=== PATIENT | male | born 1940 | race Caucasian/White ===

== ENCOUNTER 2018-03-03 08:58 | Inpatient (IN) | payer MEDICARE, OTHER ==
[~2018-03-03] VITALS: Ht 188 cm; Wt 90.7 kg
--- NOTE | 2018-03-03 09:38 | Emergency Room Report ---
History of Present Illness General Chief Complaint: Abnormal Labs Source: Patient, EMS Present Illness HPI Patient is sent in from nursing facility with reports of elevated white blood cell count Upon arrival the patient is confused sluggish Decreased responsiveness he does open his eyes to verbal command However is not able to provide appropriate history There is report from the nursing facility indicating white blood cell count over 15,000 There is not much further input History of present illness does remain very limited Unknown regarding change in medications Unknown regarding change in mentation Allergies: Coded Allergies: LORAZEPAM (Verified Allergy, Unknown, 03/03/18) Patient History Limited by: medical condition Past Medical History: see triage record Pertinent Family History: unable to obtain Reviewed Nursing Documentation: PMH: Agreed; PSxH: Agreed Nursing Documentation-PMH Past Medical History: No History, Except For Hx Asthma: Yes Hx Diabetes: Yes - Type 2 Hx Gastrointestinal Problems: Yes - GERD Hx Dialysis: Yes - CKD History Of Psychiatric Problem: Yes - Schizo, Anxiety, Depression, Dementia, Alzheimer's Review of Systems All Other Systems: limited - Other than the ones mentioned in the history of present illness all others are reviewed however they do stay limited due to the patient's mental status Physical Exam Vital Signs Date Time Temp Pulse Resp B/P (MAP) Pulse Ox O2 Delivery O2 Flow Rate FiO2 03/03/18 08:55 97.3 76 20 89/53 94 Nasal Cannula 2.0 Sp02 EP Interpretation: reviewed, normal General Appearance: no apparent distress Head: normocephalic, atraumatic Eyes: bilateral eye PERRL, bilateral eye EOMI ENT: dry mucus membranes Neck: supple, thyroid normal Respiratory: no respiratory distress, no retraction, no accessory muscle use, crackles - Both lower lobes Cardiovascular #1: regular rate, rhythm, no edema Gastrointestinal: non tender, soft Musculoskeletal: other - Patient does not follow all commands, however moves both upper extremities without focal deficit Neurologic: responsive - with underlying decreased mentation Skin: normal color, no rash Lymphatic: no adenopathy Medical Decision Making Diagnostic Impression: Primary Impression: Sepsis Additional Impression: UTI (urinary tract infection) ER Course Patient is a fairly complex patient with multiple differential to consideration including but not limited to cardiac cardiopulmonary, infectious, intracranial and vascular emergencies Patient's white blood cell count is minimally elevated Urine sample does show bacteria given some of the change in mentation sepsis is considered patient provided with broad-spectrum antibiotics Given consideration of possible fluid overload, the 30 mL/kg bolus has not been initiated Patient's x-ray also showing some concerns of possible infiltrate At this time doing better and admitted for further care Labs Test 03/03/18 09:20 03/03/18 10:00 White Blood Count 12.4 K/UL (4.8-10.8) Red Blood Count 4.16 M/UL (4.70-6.10) Hemoglobin 12.2 G/DL (14.2-18.0) Hematocrit 36.8 % (42.0-52.0) Mean Corpuscular Volume 89 FL (80-99) Mean Corpuscular Hemoglobin 29.4 PG (27.0-31.0) Mean Corpuscular Hemoglobin Concent 33.2 G/DL (32.0-36.0) Red Cell Distribution Width 12.6 % (11.6-14.8) Platelet Count 140 K/UL (150-450) Mean Platelet Volume 6.4 FL (6.5-10.1) Neutrophils (%) (Auto) 76.3 % (45.0-75.0) Lymphocytes (%) (Auto) 15.3 % (20.0-45.0) Monocytes (%) (Auto) 6.6 % (1.0-10.0) Eosinophils (%) (Auto) 1.2 % (0.0-3.0) Basophils (%) (Auto) 0.7 % (0.0-2.0) Sodium Level 140 MMOL/L (136-145) Potassium Level 4.0 MMOL/L (3.5-5.1) Chloride Level 105 MMOL/L (98-107) Carbon Dioxide Level 31 MMOL/L (21-32) Anion Gap 4 mmol/L (5-15) Blood Urea Nitrogen 22 mg/dL (7-18) Creatinine 0.9 MG/DL (0.55-1.30) Estimat Glomerular Filtration Rate mL/min (>60) Glucose Level 122 MG/DL (74-106) Lactic Acid Level 1.90 mmol/L (0.4-2.0) Calcium Level 9.1 MG/DL (8.5-10.1) Total Bilirubin 0.6 MG/DL (0.2-1.0) Aspartate Amino Transf (AST/SGOT) 32 U/L (15-37) Alanine Aminotransferase (ALT/SGPT) 14 U/L (12-78) Alkaline Phosphatase 71 U/L (46-116) Total Creatine Kinase 244 U/L (26-308) Creatine Kinase MB 2.1 NG/ML (0.0-3.6) Creatine Kinase MB Relative Index 0.8 Troponin I 0.000 ng/mL (0.000-0.056) Total Protein 7.0 G/DL (6.4-8.2) Albumin 2.7 G/DL (3.4-5.0) Globulin 4.3 g/dL Albumin/Globulin Ratio 0.6 (1.0-2.7) Urine Color Julisa Urine Appearance Clear Urine pH 6 (4.5-8.0) Urine Specific [place] 1.015 (1.005-1.035) Urine Protein 1+ (NEGATIVE) Urine Glucose (UA) Negative (NEGATIVE) Urine Ketones Negative (NEGATIVE) Urine Blood 2+ (NEGATIVE) Urine Nitrite Negative (NEGATIVE) Urine Bilirubin Negative (NEGATIVE) Urine Ictotest Negative (NEGATIVE) Urine Urobilinogen 1 MG/DL (0.0-1.0) Urine Leukocyte Esterase 3+ (NEGATIVE) Urine RBC 2-4 /HPF (0 - 0) Urine WBC 30-40 /HPF (0 - 0) Urine Squamous Epithelial Cells Occasional /LPF Urine Bacteria Few /HPF (NONE) Rhythm Strip Diag. Results EP Interpretation: yes Rate: 66 Rhythm: NSR, no PVC's, no ectopy Chest X-Ray Diagnostic Results Chest X-Ray Diagnostic Results : Chest X-Ray Ordered: Yes # of Views/Limited/Complete: 1 View Indication: Chest Pain EP Interpretation: Yes Interpretation: no effusion, no pneumothorax, other - Bilateral atelectasis Impression: Other - bilateral atelectasis Electronically Signed by: Danny Kirby DO Last Vital Signs Date Time Temp Pulse Resp B/P (MAP) Pulse Ox O2 Delivery O2 Flow Rate FiO2 03/03/18 08:55 97.3 76 20 89/53 94 Nasal Cannula 2.0 Status: improved Disposition: ADMITTED INPATIENT Condition: Serious Danny Kirby DO Mar 03, 2018 09:38
[2018-03-03 09:49] LABS: BASOPHILS % (AUTO) 0.7 % (0.0-2.0); EOSINOPHILS % (AUTO) 1.2 % (0.0-3.0); HEMATOCRIT 36.8 % (42.0-52.0); HEMOGLOBIN 12.2 G/DL (14.2-18.0); LYMPHOCYTES % (AUTO) 15.3 % (20.0-45.0); MEAN CORPUSCULAR VOLUME 89 FL (80-99); MONOCYTES % (AUTO) 6.6 % (1.0-10.0); NEUTROPHILS % (AUTO) 76.3 % (45.0-75.0); PLATELET COUNT 140 K/UL (150-450); RED BLOOD COUNT 4.16 M/UL (4.70-6.10); RED CELL DISTRIBUTION WIDTH 12.6 % (11.6-14.8); WHITE BLOOD COUNT 12.4 K/UL (4.8-10.8)
[2018-03-03 09:50] LABS: ANION GAP 4 mmol/L (5-15); BLOOD UREA NITROGEN 22 mg/dL (7-18); CALCIUM 9.1 MG/DL (8.5-10.1); CARBON DIOXIDE 31 MMOL/L (21-32); CHLORIDE 105 MMOL/L (98-107); CREATININE 0.9 MG/DL (0.55-1.30); SODIUM 140 MMOL/L (136-145)
[2018-03-03 10:05] LABS: ALANINE AMINOTRANSFERASE 14 U/L (12-78); ALBUMIN 2.7 G/DL (3.4-5.0); ALBUMIN/GLOBULIN RATIO 0.6 (1.0-2.7); ALKALINE PHOSPHATASE 71 U/L (46-116); ASPARTATE AMINO TRANSFERASE 32 U/L (15-37); BILIRUBIN,TOTAL 0.6 MG/DL (0.2-1.0); CKMB 2.1 NG/ML (0.0-3.6); CREATINE KINASE 244 U/L (26-308)
[2018-03-03] MEDS ORDERED: ARICEPT5 MG ORAL (10:20)
[2018-03-03] MEDS ORDERED: RISPERDAL0.25 MG ORAL (10:20)
[2018-03-03] MEDS ORDERED: BENZTROPINE ME0.5 MG PO (10:20)
[2018-03-03] MEDS ORDERED: ASPIR 8181 MG ORAL (10:20)
[2018-03-03] MEDS ORDERED: TRAZODONE HCL50 MG ORAL (10:20)
[2018-03-03] MEDS ORDERED: CYMBALTA30 MG ORAL (10:20)
[2018-03-03] MEDS ORDERED: NORCO 5-325 TA1 EACH ORAL (10:20)
[2018-03-03] MEDS ORDERED: MULTIPLE VITAM1 EAC5 PO (10:20)
[2018-03-03] MEDS ORDERED: OMEPRAZOLE40 M1 ORAL (10:20)
[2018-03-03] MEDS ORDERED: DOCUSATE SODIU100 MG ORAL (10:20)
[2018-03-03] MEDS ORDERED: DUONEB 0.5-3(2.53 ML HHN (10:20)
[2018-03-03] MEDS ORDERED: XANAX0.5 MG ORAL (10:20)
[2018-03-03] MEDS ORDERED: ATORVASTATIN CA40 MG ORAL (10:20)
[2018-03-03] MEDS ORDERED: VITAMIN D2000 UNI2 PO (10:20)
[2018-03-03] MEDS ORDERED: LORATADINE10 M1 PO (10:20)
[2018-03-03 10:24] LABS: APPEARANCE,URINE CLEAR; BILIRUBIN, URINE NEGATIVE (NEGATIVE); COLOR,URINE AMBER; GLUCOSE, URINE (UA) NEGATIVE (NEGATIVE); KETONES,URINE NEGATIVE (NEGATIVE); LEUKOCYTE ESTERASE ,URINE 3+ (NEGATIVE); NITRITE,URINE NEGATIVE (NEGATIVE); PH,URINE 6 (4.5-8.0); PROTEIN,URINE 1+ (NEGATIVE); UROBILINOGEN,URINE 1 MG/DL (0.0-1.0)
--- NOTE | 2018-03-03 10:33 | Diagnostic Imaging Report ---
EXAM: XR Chest, 1 View CLINICAL HISTORY: Shortness of breath TECHNIQUE: Frontal view of the chest. COMPARISON: No relevant prior studies available. FINDINGS: Lungs: Subsegmental atelectasis versus infiltrate in the medial lung bases. Mildly increased interstitial markings. Pleural space: Unremarkable. The costophrenic angles are sharp. No visible pneumothorax. Heart: Unremarkable. No cardiomegaly. Mediastinum: Unremarkable. Bones/joints: Remote healed lateral right rib fractures. Soft tissues: Multiple subcentimeter radiodense pellets overlie the right chest soft tissues. Tubes, lines and devices: EKG leads overlie the thorax. Multiple radiodense wires overlie the right thorax. Spinal stimulator leads overlying the mid thoracic spine. IMPRESSION: 1. Subsegmental atelectasis versus infiltrate in the medial lung bases. 2. Mildly increased interstitial markings. This is nonspecific and may be related to chronic senescent changes. Differential diagnosis may also include mild pulmonary vascular congestion or mild interstitial pneumonitis.
[2018-03-03 11:05] VITALS: BP 104/54
[2018-03-03 11:46] VITALS: BP 100/61
[2018-03-03 12:10] VITALS: BP 99/64
[2018-03-03] MEDS ORDERED: Morphine Sulfate 2mg/ml Inj IVP PRN (13:00)
[2018-03-03] MEDS ORDERED: Miralax 17gm pkt ORAL PRN (13:00)
[2018-03-03] MEDS ORDERED: Nitroglycerin Subl 0.4mg tab SL PRN (13:00)
[2018-03-03] MEDS ORDERED: Albuterol/Ipratropium 3ml neb HHN PRN (13:00)
--- NOTE | 2018-03-03 15:25 | Pulmonology Progress Note ---
Assessment/Plan Assessment/Plan HPI Patient is sent in from nursing facility with reports of elevated white blood cell count Upon arrival the patient is confused sluggish Decreased responsiveness he does open his eyes to verbal command Noted to have elevated WBC No other history available PMH: Asthma, Type 2 Diabetes, GERD, CKD, Schizophrenia, Anxiety Depression, Alzheimers Dementia Coded Allergies: LORAZEPAM (Verified Allergy, Unknown, 03/03/18) Review of Systems: limited - Other than the ones mentioned in the history of present illness all others are reviewed however they do stay limited due to the patient's mental status Physical Exam Vital Signs Date Time Temp Pulse Resp B/P (MAP) Pulse Ox O2 Delivery O2 Flow Rate FiO2 03/03/18 08:55 97.3 76 20 89/53 94 Nasal Cannula 2.0 General Appearance: no apparent distress Head: normocephalic, atraumatic Eyes: bilateral eye PERRL, bilateral eye EOMI ENT: dry mucus membranes Neck: supple, thyroid normal Respiratory: no respiratory distress, no retraction, no accessory muscle use, crackles - Both lower lobes Cardiovascular #1: regular rate, rhythm, no edema Gastrointestinal: non tender, soft Musculoskeletal: other - Patient does not follow all commands, however moves both upper extremities without focal deficit Neurologic: responsive - with underlying decreased mentation Skin: normal color, no rash Lymphatic: no adenopathy Labs Test 03/03/18 09:20 03/03/18 10:00 White Blood Count 12.4 K/UL (4.8-10.8) Red Blood Count 4.16 M/UL (4.70-6.10) Hemoglobin 12.2 G/DL (14.2-18.0) Hematocrit 36.8 % (42.0-52.0) Mean Corpuscular Volume 89 FL (80-99) Mean Corpuscular Hemoglobin 29.4 PG (27.0-31.0) Mean Corpuscular Hemoglobin Concent 33.2 G/DL (32.0-36.0) Red Cell Distribution Width 12.6 % (11.6-14.8) Platelet Count 140 K/UL (150-450) Mean Platelet Volume 6.4 FL (6.5-10.1) Neutrophils (%) (Auto) 76.3 % (45.0-75.0) Lymphocytes (%) (Auto) 15.3 % (20.0-45.0) Monocytes (%) (Auto) 6.6 % (1.0-10.0) Eosinophils (%) (Auto) 1.2 % (0.0-3.0) Basophils (%) (Auto) 0.7 % (0.0-2.0) Sodium Level 140 MMOL/L (136-145) Potassium Level 4.0 MMOL/L (3.5-5.1) Chloride Level 105 MMOL/L (98-107) Carbon Dioxide Level 31 MMOL/L (21-32) Anion Gap 4 mmol/L (5-15) Blood Urea Nitrogen 22 mg/dL (7-18) Creatinine 0.9 MG/DL (0.55-1.30) Estimat Glomerular Filtration Rate mL/min (>60) Glucose Level 122 MG/DL (74-106) Lactic Acid Level 1.90 mmol/L (0.4-2.0) Calcium Level 9.1 MG/DL (8.5-10.1) Total Bilirubin 0.6 MG/DL (0.2-1.0) Aspartate Amino Transf (AST/SGOT) 32 U/L (15-37) Alanine Aminotransferase (ALT/SGPT) 14 U/L (12-78) Alkaline Phosphatase 71 U/L (46-116) Total Creatine Kinase 244 U/L (26-308) Creatine Kinase MB 2.1 NG/ML (0.0-3.6) Creatine Kinase MB Relative Index 0.8 Troponin I 0.000 ng/mL (0.000-0.056) Total Protein 7.0 G/DL (6.4-8.2) Albumin 2.7 G/DL (3.4-5.0) Globulin 4.3 g/dL Albumin/Globulin Ratio 0.6 (1.0-2.7) Urine Color Julisa Urine Appearance Clear Urine pH 6 (4.5-8.0) Urine Specific [place] 1.015 (1.005-1.035) Urine Protein 1+ (NEGATIVE) Urine Glucose (UA) Negative (NEGATIVE) Urine Ketones Negative (NEGATIVE) Urine Blood 2+ (NEGATIVE) Urine Nitrite Negative (NEGATIVE) Urine Bilirubin Negative (NEGATIVE) Urine Ictotest Negative (NEGATIVE) Urine Urobilinogen 1 MG/DL (0.0-1.0) Urine Leukocyte Esterase 3+ (NEGATIVE) Urine RBC 2-4 /HPF (0 - 0) Urine WBC 30-40 /HPF (0 - 0) Urine Squamous Epithelial Cells Occasional /LPF Urine Bacteria Few /HPF (NONE) EP Interpretation: yes Rate: 66 Rhythm: NSR, no PVC's, no ectopy Chest X-Ray: Interpretation: no effusion, no pneumothorax, other - Bilateral atelectasis Impression: Other - bilateral atelectasis U/A Positive for UTI Impression: Possible Pneumonia Urinary Tract Infection Hypotension Asthma Type 2 Diabetes GERD CKD Schizophrenia, Anxiety/Depression Alzheimers Dementia Plan: Continue Broad spectrum Antibiotics Oxygen for O2 sats 90-96% IV fluids [employer]ING MACHINE OPERATOR Medications SQ Heparin Aspiration Precautions ISS Monitor Labs Subjective ROS Limited/Unobtainable: Yes Allergies: Coded Allergies: LORAZEPAM (Verified Allergy, Unknown, 03/03/18) Objective Last 24 Hour Vital Signs Date Time Temp Pulse Resp B/P (MAP) Pulse Ox O2 Delivery O2 Flow Rate FiO2 03/03/18 14:29 Room Air 03/03/18 12:10 97.7 65 16 99/64 (76) 95 03/03/18 12:06 67 03/03/18 12:05 96.4 66 15 100/61 100 Room Air 03/03/18 11:46 96.4 69 18 100/61 97 Room Air 03/03/18 11:05 97.3 21 104/54 97 Room Air 03/03/18 08:55 97.3 76 20 89/53 94 Nasal Cannula 2.0 Laboratory Tests 03/03/18 09:20: White Blood Count 12.4H, Red Blood Count 4.16L, Hemoglobin 12.2L, Hematocrit 36.8L, Mean Corpuscular Volume 89, Mean Corpuscular Hemoglobin 29.4, Mean Corpuscular Hemoglobin Concent 33.2, Red Cell Distribution Width 12.6, Platelet Count 140L, Mean Platelet Volume 6.4L, Neutrophils (%) (Auto) 76.3H, Lymphocytes (%) (Auto) 15.3L, Monocytes (%) (Auto) 6.6, Eosinophils (%) (Auto) 1.2, Basophils (%) (Auto) 0.7, Sodium Level 140, Potassium Level 4.0, Chloride Level 105, Carbon Dioxide Level 31, Anion Gap 4L, Blood Urea Nitrogen 22H, Creatinine 0.9, Estimat Glomerular Filtration Rate , Glucose Level 122H, Lactic Acid Level 1.90, Calcium Level 9.1, Total Bilirubin 0.6, Aspartate Amino Transf (AST/SGOT) 32, Alanine Aminotransferase (ALT/SGPT) 14, Alkaline Phosphatase 71, Total Creatine Kinase 244, Creatine Kinase MB 2.1, Creatine Kinase MB Relative Index 0.8, Troponin I 0.000, Total Protein 7.0, Albumin 2.7L, Globulin 4.3, Albumin/Globulin Ratio 0.6L 03/03/18 10:00: Urine Color Julisa, Urine Appearance Clear, Urine pH 6, Urine Specific [place] 1.015, Urine Protein 1+H, Urine Glucose (UA) Negative, Urine Ketones Negative, Urine Blood 2+H, Urine Nitrite Negative, Urine Bilirubin Negative, Urine Ictotest Negative, Urine Urobilinogen 1H, Urine Leukocyte Esterase 3+H, Urine RBC 2-4H, Urine WBC 30-40H, Urine Squamous Epithelial Cells Occasional, Urine Bacteria Few Current Medications Medications (Trade) Dose Ordered Sig/Jori Route PRN Reason Start Time Stop Time Status Last Admin Dose Admin Acetaminophen (Tylenol) 650 mg Q4H PRN ORAL fever 03/03/18 13:00 04/02/18 12:59 Albuterol/ Ipratropium (Albuterol/ Ipratropium) 3 ml Q4H PRN HHN Shortness of Breath 03/03/18 13:00 03/08/18 12:59 Cefepime HCl 2 gm/ Dextrose 110 ml @ 220 mls/hr EVERY 12 HOURS IV 03/03/18 21:00 03/10/18 20:59 Heparin Sodium (Porcine) (Heparin 5000 units/ml) 5,000 units EVERY 12 HOURS SUBQ 03/03/18 21:00 04/02/18 20:59 Morphine Sulfate (Morphine Sulfate) 2 mg Q4H PRN IVP Moderate Pain (Pain Scale 4-6) 03/03/18 13:00 03/10/18 12:59 Nitroglycerin (Ntg) 0.4 mg Q5M PRN SL Prn Chest Pain 03/03/18 13:00 04/02/18 12:59 Ondansetron HCl (Zofran) 4 mg Q6H PRN IVP Nausea & Vomiting 03/03/18 13:00 04/02/18 12:59 Polyethylene Glycol (Miralax) 17 gm DAILYPRN PRN ORAL Constipation 03/03/18 13:00 04/02/18 12:59 Vancomycin HCl (Vanco rx to dose) 1 ea DAILY PRN MISC PER PHARM 03/03/18 13:15 04/02/18 13:14 Vancomycin HCl 1 gm/Dextrose 275 ml @ 183.3 mls/ hr Q12H IVPB 03/04/18 17:00 03/09/18 16:59 Alfonso Ribera MD Mar 03, 2018 15:25
[2018-03-03 16:00] VITALS: BP 124/64
[2018-03-03] MEDS ORDERED: Piperacillin/Tazobactam 3.375 GM in NS 110 ML IVPB SCH (18:00)
[2018-03-03 20:00] VITALS: BP 126/91
[2018-03-03] MEDS: Ipratropium 0.02% Inh Soln 2.5ml UD HHN SCH (20:26)
[2018-03-03] MEDS: Heparin 5000 units/ml inj SUBQ SCH (21:00)
[2018-03-03] MEDS: Cefepime HCl 2 GM in D5W 110 ML IV SCH (21:00)
[2018-03-03] MEDS: NovoLOG Insulin Flexpen SUBQ SCH (21:00)
[2018-03-03] MEDS: ALPRAZolam 0.5mg tab ORAL SCH ×2 (21:24→21:51)
[2018-03-03] MEDS: Doxycycline Hyclate 100 MG in D5W 110 ML IV SCH (21:36)
[2018-03-04] VITALS: BP 138/79
[2018-03-04] MEDS: Ipratropium 0.02% Inh Soln 2.5ml UD HHN SCH ×4 (01:30→20:00)
[2018-03-04 04:00] VITALS: BP 139/66
[2018-03-04] MEDS: NovoLOG Insulin Flexpen SUBQ SCH ×4 (05:53→20:33)
[2018-03-04 08:00] VITALS: BP 137/70
[2018-03-04 08:18] LABS: BASOPHILS % (AUTO) 0.5 % (0.0-2.0); EOSINOPHILS % (AUTO) 3.4 % (0.0-3.0); HEMATOCRIT 36.5 % (42.0-52.0); HEMOGLOBIN 12.1 G/DL (14.2-18.0); LYMPHOCYTES % (AUTO) 16.3 % (20.0-45.0); MEAN CORPUSCULAR VOLUME 88 FL (80-99); MONOCYTES % (AUTO) 6.8 % (1.0-10.0); NEUTROPHILS % (AUTO) 73.1 % (45.0-75.0); PLATELET COUNT 169 K/UL (150-450); RED BLOOD COUNT 4.14 M/UL (4.70-6.10); RED CELL DISTRIBUTION WIDTH 12.4 % (11.6-14.8); WHITE BLOOD COUNT 7.8 K/UL (4.8-10.8)
[2018-03-04 08:44] LABS: ALANINE AMINOTRANSFERASE 18 U/L (12-78); ALBUMIN 2.8 G/DL (3.4-5.0); ALBUMIN/GLOBULIN RATIO 0.6 (1.0-2.7); ALKALINE PHOSPHATASE 72 U/L (46-116); ANION GAP 4 mmol/L (5-15); ASPARTATE AMINO TRANSFERASE 20 U/L (15-37); BILIRUBIN,TOTAL 0.4 MG/DL (0.2-1.0); BLOOD UREA NITROGEN 12 mg/dL (7-18); CARBON DIOXIDE 30 MMOL/L (21-32); CHLORIDE 106 MMOL/L (98-107); CREATININE 0.8 MG/DL (0.55-1.30); POTASSIUM 3.6 MMOL/L (3.5-5.1); SODIUM 140 MMOL/L (136-145)
[2018-03-04] MEDS: Cefepime HCl 2 GM in D5W 110 ML IV SCH ×2 (08:55→20:33)
[2018-03-04] MEDS: ALPRAZolam 0.5mg tab ORAL SCH ×2 (08:55→17:09)
[2018-03-04] MEDS: Heparin 5000 units/ml inj SUBQ SCH ×2 (09:04→20:35)
--- NOTE | 2018-03-04 09:32 | Pulmonology Progress Note ---
Assessment/Plan Assessment/Plan HPI Patient is sent in from nursing facility with reports of elevated white blood cell count Upon arrival the patient is confused sluggish Decreased responsiveness he does open his eyes to verbal command Noted to have elevated WBC No other history available PMH: Asthma, Type 2 Diabetes, GERD, CKD, Schizophrenia, Anxiety Depression, Alzheimers Dementia Coded Allergies: LORAZEPAM (Verified Allergy, Unknown, 03/03/18) Review of Systems: limited - Other than the ones mentioned in the history of present illness all others are reviewed however they do stay limited due to the patient's mental status Physical Exam Vital Signs noted General Appearance: no apparent distress Head: normocephalic, atraumatic Eyes: bilateral eye PERRL, bilateral eye EOMI ENT: dry mucus membranes Neck: supple, thyroid normal Respiratory: no respiratory distress, no retraction, no accessory muscle use, crackles - Both lower lobes Cardiovascular #1: regular rate, rhythm, no edema Gastrointestinal: non tender, soft Musculoskeletal: other - Patient does not follow all commands, however moves both upper extremities without focal deficit Neurologic: responsive - with underlying decreased mentation Skin: normal color, no rash Lymphatic: no adenopathy Labs Test 03/03/18 09:20 03/03/18 10:00 White Blood Count 12.4 K/UL (4.8-10.8) Red Blood Count 4.16 M/UL (4.70-6.10) Hemoglobin 12.2 G/DL (14.2-18.0) Hematocrit 36.8 % (42.0-52.0) Mean Corpuscular Volume 89 FL (80-99) Mean Corpuscular Hemoglobin 29.4 PG (27.0-31.0) Mean Corpuscular Hemoglobin Concent 33.2 G/DL (32.0-36.0) Red Cell Distribution Width 12.6 % (11.6-14.8) Platelet Count 140 K/UL (150-450) Mean Platelet Volume 6.4 FL (6.5-10.1) Neutrophils (%) (Auto) 76.3 % (45.0-75.0) Lymphocytes (%) (Auto) 15.3 % (20.0-45.0) Monocytes (%) (Auto) 6.6 % (1.0-10.0) Eosinophils (%) (Auto) 1.2 % (0.0-3.0) Basophils (%) (Auto) 0.7 % (0.0-2.0) Sodium Level 140 MMOL/L (136-145) Potassium Level 4.0 MMOL/L (3.5-5.1) Chloride Level 105 MMOL/L (98-107) Carbon Dioxide Level 31 MMOL/L (21-32) Anion Gap 4 mmol/L (5-15) Blood Urea Nitrogen 22 mg/dL (7-18) Creatinine 0.9 MG/DL (0.55-1.30) Estimat Glomerular Filtration Rate mL/min (>60) Glucose Level 122 MG/DL (74-106) Lactic Acid Level 1.90 mmol/L (0.4-2.0) Calcium Level 9.1 MG/DL (8.5-10.1) Total Bilirubin 0.6 MG/DL (0.2-1.0) Aspartate Amino Transf (AST/SGOT) 32 U/L (15-37) Alanine Aminotransferase (ALT/SGPT) 14 U/L (12-78) Alkaline Phosphatase 71 U/L (46-116) Total Creatine Kinase 244 U/L (26-308) Creatine Kinase MB 2.1 NG/ML (0.0-3.6) Creatine Kinase MB Relative Index 0.8 Troponin I 0.000 ng/mL (0.000-0.056) Total Protein 7.0 G/DL (6.4-8.2) Albumin 2.7 G/DL (3.4-5.0) Globulin 4.3 g/dL Albumin/Globulin Ratio 0.6 (1.0-2.7) Urine Color Julisa Urine Appearance Clear Urine pH 6 (4.5-8.0) Urine Specific [place] 1.015 (1.005-1.035) Urine Protein 1+ (NEGATIVE) Urine Glucose (UA) Negative (NEGATIVE) Urine Ketones Negative (NEGATIVE) Urine Blood 2+ (NEGATIVE) Urine Nitrite Negative (NEGATIVE) Urine Bilirubin Negative (NEGATIVE) Urine Ictotest Negative (NEGATIVE) Urine Urobilinogen 1 MG/DL (0.0-1.0) Urine Leukocyte Esterase 3+ (NEGATIVE) Urine RBC 2-4 /HPF (0 - 0) Urine WBC 30-40 /HPF (0 - 0) Urine Squamous Epithelial Cells Occasional /LPF Urine Bacteria Few /HPF (NONE) EP Interpretation: yes Rate: 66 Rhythm: NSR, no PVC's, no ectopy Chest X-Ray: Interpretation: no effusion, no pneumothorax, other - Bilateral atelectasis Impression: Other - bilateral atelectasis U/A Positive for UTI Impression: Possible Pneumonia Urinary Tract Infection Hypotension Asthma Type 2 Diabetes GERD CKD Schizophrenia, Anxiety/Depression Alzheimers Dementia Plan: Continue Broad spectrum Antibiotics Oxygen for O2 sats 90-96% 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 Aspiration Precautions ISS Monitor Labs Subjective Allergies: Coded Allergies: LORAZEPAM (Verified Allergy, Unknown, 03/03/18) Objective Last 24 Hour Vital Signs Date Time Temp Pulse Resp B/P (MAP) Pulse Ox O2 Delivery O2 Flow Rate FiO2 03/04/18 08:00 98.1 65 16 137/70 (92) 95 03/04/18 07:38 87 18 94 Room Air 21 03/04/18 07:38 Room Air 21 03/04/18 04:00 98.4 72 20 139/66 (90) 94 03/04/18 04:00 69 03/04/18 01:40 75 20 97 Room Air 21 03/04/18 01:30 74 16 94 Room Air 21 03/04/18 00:00 98.3 78 20 138/79 (98) 93 03/04/18 00:00 74 03/03/18 21:00 Room Air 03/03/18 20:37 78 18 96 Room Air 21 03/03/18 20:33 76 18 Room Air 21 03/03/18 20:27 76 16 93 Room Air 21 03/03/18 20:00 80 03/03/18 20:00 98.2 76 20 126/91 (103) 98 03/03/18 16:00 71 03/03/18 16:00 97.2 73 18 124/64 (84) 95 03/03/18 14:29 Room Air 03/03/18 12:10 97.7 65 16 99/64 (76) 95 03/03/18 12:06 67 03/03/18 12:05 96.4 66 15 100/61 100 Room Air 03/03/18 11:46 96.4 69 18 100/61 97 Room Air 03/03/18 11:05 97.3 21 104/54 97 Room Air Intake and Output 03/03/18 03/04/18 18:59 06:59 Intake Total 120 ml Balance 120 ml Intake Oral 120 ml Other 0 ml # Voids 1 # Bowel Movements 1 Microbiology Date/Time Source Procedure Growth Status 03/03/18 10:00 Urine,Clean Catch Urine Culture - Preliminary Resulted Laboratory Tests 03/03/18 10:00: Urine Color Julisa, Urine Appearance Clear, Urine pH 6, Urine Specific [place] 1.015, Urine Protein 1+H, Urine Glucose (UA) Negative, Urine Ketones Negative, Urine Blood 2+H, Urine Nitrite Negative, Urine Bilirubin Negative, Urine Ictotest Negative, Urine Urobilinogen 1H, Urine Leukocyte Esterase 3+H, Urine RBC 2-4H, Urine WBC 30-40H, Urine Squamous Epithelial Cells Occasional, Urine Bacteria Few 03/04/18 07:23: White Blood Count 7.8, Red Blood Count 4.14L, Hemoglobin 12.1L, Hematocrit 36.5L , Mean Corpuscular Volume 88, Mean Corpuscular Hemoglobin 29.3, Mean Corpuscular Hemoglobin Concent 33.2, Red Cell Distribution Width 12.4, Platelet Count 169, Mean Platelet Volume 5.3L, Neutrophils (%) (Auto) 73.1, Lymphocytes ( %) (Auto) 16.3L, Monocytes (%) (Auto) 6.8, Eosinophils (%) (Auto) 3.4H, Basophils (%) (Auto) 0.5 03/04/18 07:55: Sodium Level 140, Potassium Level 3.6, Chloride Level 106, Carbon Dioxide Level 30, Anion Gap 4L, Blood Urea Nitrogen 12, Creatinine 0.8, Estimat Glomerular Filtration Rate , Glucose Level 94, Calcium Level 9.0, Total Bilirubin 0.4, Aspartate Amino Transf (AST/SGOT) 20, Alanine Aminotransferase (ALT/SGPT) 18, Alkaline Phosphatase 72, Total Protein 7.4, Albumin 2.8L, Globulin 4.6, Albumin/ Globulin Ratio 0.6L Current Medications Medications (Trade) Dose Ordered Sig/Jori Route PRN Reason Start Time Stop Time Status Last Admin Dose Admin Acetaminophen (Tylenol) 650 mg Q4H PRN ORAL fever 03/03/18 13:00 04/02/18 12:59 Albuterol/ Ipratropium (Albuterol/ Ipratropium) 3 ml Q4H PRN HHN Shortness of Breath 03/03/18 13:00 03/08/18 12:59 Alprazolam (Xanax) 0.5 mg BID ORAL 03/03/18 21:24 03/10/18 21:23 03/04/18 08:55 Cefepime HCl 2 gm/ Dextrose 110 ml @ 220 mls/hr EVERY 12 HOURS IV 03/03/18 21:00 03/10/18 20:59 03/04/18 08:55 Dextrose (Dextrose 50%) 25 ml Q30M PRN IV Hypoglycemia 03/03/18 17:30 04/02/18 17:29 Dextrose (Dextrose 50%) 50 ml Q30M PRN IV Hypoglycemia 03/03/18 17:30 04/02/18 17:29 Doxycycline Hyclate 100 mg/ Dextrose 110 ml @ 110 mls/hr Q12HR IV 03/03/18 21:00 03/10/18 20:59 03/03/18 21:36 Heparin Sodium (Porcine) (Heparin 5000 units/ml) 5,000 units EVERY 12 HOURS SUBQ 03/03/18 21:00 04/02/18 20:59 03/04/18 09:04 Insulin Aspart (NovoLOG) BEFORE MEALS AND HS SUBQ 03/03/18 21:00 04/02/18 20:59 Ipratropium [place] (Atrovent) 500 mcg Q6HRT HHN 03/03/18 19:00 03/08/18 18:59 03/04/18 01:30 Metronidazole 100 ml @ 100 mls/hr Q8HR IVPB 03/03/18 22:00 03/10/18 21:59 03/04/18 05:53 Morphine Sulfate (Morphine Sulfate) 2 mg Q4H PRN IVP Moderate Pain (Pain Scale 4-6) 03/03/18 13:00 03/10/18 12:59 Nitroglycerin (Ntg) 0.4 mg Q5M PRN SL Prn Chest Pain 03/03/18 13:00 04/02/18 12:59 Ondansetron HCl (Zofran) 4 mg Q6H PRN IVP Nausea & Vomiting 03/03/18 13:00 04/02/18 12:59 Polyethylene Glycol (Miralax) 17 gm DAILYPRN PRN ORAL Constipation 03/03/18 13:00 04/02/18 12:59 Sodium Chloride 1,000 ml @ 50 mls/hr Q20H IV 03/03/18 17:42 03/04/18 17:41 03/03/18 17:51 Vancomycin HCl (Vanco rx to dose) 1 ea DAILY PRN MISC PER PHARM 03/03/18 13:15 04/02/18 13:14 Vancomycin HCl 1 gm/Dextrose 275 ml @ 183.3 mls/ hr Q12H IVPB 03/04/18 17:00 03/09/18 16:59 Alfonso Ribera MD Mar 04, 2018 09:32
[2018-03-04] MEDS: Doxycycline Hyclate 100 MG in D5W 110 ML IV SCH ×2 (09:39→20:33)
[2018-03-04 12:00] VITALS: BP 102/60
[2018-03-04 16:00] VITALS: BP 106/57
[2018-03-04] MEDS: Vancomycin 1 GM in D5W 275 ML IVPB SCH (17:00)
[2018-03-04 20:00] VITALS: BP 119/55
--- NOTE | 2018-03-04 20:59 | History and Physical Report ---
DATE OF ADMISSION: 03/03/2018 TIME SEEN: On 03/04/2018 at 8 a.m. CONSULTANTS: 1. Leela Weston M.D. 2. Sudhakar Castillo M.D. 3. Rogelio De La Cruz M.D. CHIEF COMPLAINT: Increased confusion, weakness, UTI, pneumonia, sepsis. BRIEF HISTORY: This is a 77-year-old male from [facility], who presents to [facility] ER last night with increased confusion and weakness. The patient was diagnosed with UTI, pneumonia, sepsis, and encephalopathy and admitted to telemetry for further care. Currently, calm in bed, confused, no complaint. REVIEW OF SYSTEMS: No chest pain. No shortness of breath. No nausea, vomiting, or diarrhea. PAST MEDICAL HISTORY: Includes encephalopathy, GERD. PAST SURGICAL HISTORY: Unknown. ALLERGIES: Lorazepam. MEDICATIONS: Include vancomycin, metronidazole, alprazolam, cefepime, heparin, doxycycline, insulin aspart, albuterol, morphine, Zofran. SOCIAL HISTORY: No smoking. No alcohol. No intravenous drug abuse. FAMILY HISTORY: Noncontributory. PHYSICAL EXAMINATION: GENERAL: Slightly confused in bed, oriented x1, in no acute distress. VITAL SIGNS: Temperature is 98 degrees, pulse 87, respirations 20, blood pressure 139/66. CARDIOVASCULAR: No murmur. LUNGS: Poor air exchange. ABDOMEN: Bowel sounds positive. Nondistended. EXTREMITIES: No cyanosis, clubbing, or edema. NEUROLOGIC: The patient moves all extremities, slightly weak. LABORATORY AND DIAGNOSTIC DATA: Labs at this time show white count 12.4, hemoglobin and hematocrit 12/36, platelets 140,000. BMP shows yesterday BUN 22, glucose 122, albumin 2.7, otherwise normal BMP. Urinalysis shows 3+ leukocyte esterase. ASSESSMENT: UTI, pneumonia, sepsis, GERD, anaemia, malnutrition, encephalopathy. PLAN: 1. Resume home medications. 2. O2 and pulmonary treatment as needed. 3. Antibiotics per Infectious Disease. 4. Dietary followup. 5. CBC and BMP in the morning. 6. We will continue to follow this patient. 7. OT, PT, dietary evaluation. Jc Leone D.O. DR: Rohit JOB#: [id number] CC:
[2018-03-05] VITALS: BP 138/68
[2018-03-05] MEDS: Ipratropium 0.02% Inh Soln 2.5ml UD HHN SCH ×4 (01:00→20:56)
[2018-03-05 04:00] VITALS: BP 130/60
[2018-03-05 04:48] LABS: BASOPHILS % (AUTO) 0.7 % (0.0-2.0); EOSINOPHILS % (AUTO) 4.5 % (0.0-3.0); HEMOGLOBIN 13.3 G/DL (14.2-18.0); LYMPHOCYTES % (AUTO) 28.4 % (20.0-45.0); MEAN CORPUSCULAR VOLUME 88 FL (80-99); MONOCYTES % (AUTO) 7.3 % (1.0-10.0); NEUTROPHILS % (AUTO) 59.2 % (45.0-75.0); PLATELET COUNT 186 K/UL (150-450); RED BLOOD COUNT 4.45 M/UL (4.70-6.10); RED CELL DISTRIBUTION WIDTH 12.2 % (11.6-14.8); WHITE BLOOD COUNT 7.3 K/UL (4.8-10.8)
[2018-03-05 05:00] LABS: ANION GAP 4 mmol/L (5-15); BLOOD UREA NITROGEN 16 mg/dL (7-18); CALCIUM 9.4 MG/DL (8.5-10.1); CARBON DIOXIDE 29 MMOL/L (21-32); CHLORIDE 109 MMOL/L (98-107); CREATININE 0.9 MG/DL (0.55-1.30); POTASSIUM 4.2 MMOL/L (3.5-5.1); SODIUM 142 MMOL/L (136-145)
[2018-03-05] MEDS: Vancomycin 1 GM in D5W 275 ML IVPB SCH ×2 (05:00→19:39)
[2018-03-05] MEDS ORDERED: Vancomycin 1.5gm/D5W 250ml 250 ML IVPB SCH (06:00)
[2018-03-05] MEDS: NovoLOG Insulin Flexpen SUBQ SCH ×4 (06:30→21:10)
[2018-03-05 08:00] VITALS: BP 123/67
[2018-03-05] MEDS ORDERED: Ipratropium 0.02% Inh Soln 2.5ml UD ONE ×2 (08:25→16:05)
[2018-03-05] MEDS: Doxycycline Hyclate 100 MG in D5W 110 ML IV SCH ×2 (08:57→21:32)
[2018-03-05] MEDS: ALPRAZolam 0.5mg tab ORAL SCH ×2 (09:11→17:49)
[2018-03-05] MEDS: Heparin 5000 units/ml inj SUBQ SCH ×2 (09:13→21:09)
--- NOTE | 2018-03-05 09:13 | Consultation ---
Consult Note Consult Note # [id number] Sudhakar Castillo MD Mar 05, 2018 09:13
[2018-03-05] MEDS: Cefepime HCl 2 GM in D5W 110 ML IV SCH ×2 (09:55→21:08)
--- NOTE | 2018-03-05 11:15 | Pulmonology Progress Note ---
Assessment/Plan Problems: (1) Sepsis (2) UTI (urinary tract infection) (3) Dementia (4) Depression (5) Psychosis Assessment/Plan improving check cultures iv abx check electrolytes psych f/u dvt prophylaxis aspiration precaution Subjective ROS Limited/Unobtainable: No Allergies: Coded Allergies: LORAZEPAM (Verified Allergy, Unknown, 03/03/18) Objective Last 24 Hour Vital Signs Date Time Temp Pulse Resp B/P (MAP) Pulse Ox O2 Delivery O2 Flow Rate FiO2 03/05/18 09:10 70 16 98 Room Air 21 03/05/18 09:00 Room Air 03/05/18 08:53 68 18 92 Room Air 21 03/05/18 08:00 97.9 65 19 123/67 (85) 95 03/05/18 04:00 98.1 73 22 130/60 (83) 95 03/05/18 04:00 83 03/05/18 01:11 Room Air 03/05/18 01:11 Room Air 03/05/18 00:00 73 03/05/18 00:00 98.2 68 18 138/68 (91) 95 03/04/18 21:00 Room Air 03/04/18 20:00 79 03/04/18 20:00 98.6 71 22 119/55 (76) 94 03/04/18 20:00 70 16 94 Room Air 21 03/04/18 20:00 70 16 94 Room Air 21 03/04/18 16:00 97.7 85 16 106/57 (73) 96 03/04/18 16:00 80 03/04/18 13:26 77 20 98 Room Air 21 03/04/18 13:20 72 16 96 Room Air 21 03/04/18 12:00 74 03/04/18 12:00 97.5 72 16 102/60 (74) 94 Intake and Output 03/04/18 03/05/18 19:00 07:00 Intake Total 241 ml Output Total 600 ml Balance -359 ml Intake Oral 241 ml Output Urine Total 600 ml # Voids 2 # Bowel Movements 2 General Appearance: WD/WN HEENT: normocephalic, atraumatic Respiratory/Chest: chest wall non-tender, normal breath sounds Cardiovascular: normal peripheral pulses, normal rate Abdomen: normal bowel sounds, soft, non tender, no organomegaly Neurologic/Psychiatric: inspector plug seam II-XII grossly normal, no motor/sensory deficits Microbiology Date/Time Source Procedure Growth Status 03/03/18 09:30 Blood Blood Culture - Preliminary NO GROWTH AFTER 24 HOURS Resulted 03/03/18 09:20 Blood Blood Culture - Preliminary NO GROWTH AFTER 24 HOURS Resulted 03/03/18 10:00 Urine,Clean Catch Urine Culture - Preliminary Streptococcus Species Resulted 03/03/18 09:45 Rectum VRE Culture - Final Enterococcus Faecalis - Vre Complete 03/03/18 09:45 Rectum - Final NO CARBAPENEM-RESISTANT ENTEROBACTERI... Complete Laboratory Tests 03/05/18 04:01: White Blood Count 7.3, Red Blood Count 4.45L, Hemoglobin 13.3L, Hematocrit 39.0L , Mean Corpuscular Volume 88, Mean Corpuscular Hemoglobin 29.9, Mean Corpuscular Hemoglobin Concent 34.0, Red Cell Distribution Width 12.2, Platelet Count 186, Mean Platelet Volume 5.4L, Neutrophils (%) (Auto) 59.2, Lymphocytes ( %) (Auto) 28.4, Monocytes (%) (Auto) 7.3, Eosinophils (%) (Auto) 4.5H, Basophils (%) (Auto) 0.7, Sodium Level 142, Potassium Level 4.2, Chloride Level 109H, Carbon Dioxide Level 29, Anion Gap 4L, Blood Urea Nitrogen 16, Creatinine 0.9, Estimat Glomerular Filtration Rate , Glucose Level 100, Calcium Level 9.4, Vancomycin Level Trough 3.9L Current Medications Medications (Trade) Dose Ordered Sig/Jori Route PRN Reason Start Time Stop Time Status Last Admin Dose Admin Acetaminophen (Tylenol) 650 mg Q4H PRN ORAL fever 03/03/18 13:00 04/02/18 12:59 Albuterol/ Ipratropium (Albuterol/ Ipratropium) 3 ml Q4H PRN HHN Shortness of Breath 03/03/18 13:00 03/08/18 12:59 Alprazolam (Xanax) 0.5 mg BID ORAL 03/03/18 21:24 03/10/18 21:23 03/05/18 09:11 Cefepime HCl 2 gm/ Dextrose 110 ml @ 220 mls/hr EVERY 12 HOURS IV 03/03/18 21:00 03/10/18 20:59 03/05/18 09:55 Dextrose (Dextrose 50%) 25 ml Q30M PRN IV Hypoglycemia 03/03/18 17:30 04/02/18 17:29 Dextrose (Dextrose 50%) 50 ml Q30M PRN IV Hypoglycemia 03/03/18 17:30 04/02/18 17:29 Donepezil HCl (Aricept) 5 mg QHS ORAL 03/05/18 21:00 04/04/18 20:59 Doxycycline Hyclate 100 mg/ Dextrose 110 ml @ 110 mls/hr Q12HR IV 03/03/18 21:00 03/10/18 20:59 03/05/18 08:57 Duloxetine HCl (Cymbalta) 20 mg DAILY ORAL 03/05/18 09:00 04/04/18 08:59 03/05/18 09:11 Heparin Sodium (Porcine) (Heparin 5000 units/ml) 5,000 units EVERY 12 HOURS SUBQ 03/03/18 21:00 04/02/18 20:59 03/05/18 09:13 Insulin Aspart (NovoLOG) BEFORE MEALS AND HS SUBQ 03/03/18 21:00 04/02/18 20:59 Ipratropium [place] (Atrovent) 500 mcg Q6HRT HHN 03/03/18 19:00 03/08/18 18:59 03/05/18 08:53 Metronidazole 100 ml @ 100 mls/hr Q8HR IVPB 03/03/18 22:00 03/10/18 21:59 03/05/18 06:00 Morphine Sulfate (Morphine Sulfate) 2 mg Q4H PRN IVP Moderate Pain (Pain Scale 4-6) 03/03/18 13:00 03/10/18 12:59 Nitroglycerin (Ntg) 0.4 mg Q5M PRN SL Prn Chest Pain 03/03/18 13:00 04/02/18 12:59 Ondansetron HCl (Zofran) 4 mg Q6H PRN IVP Nausea & Vomiting 03/03/18 13:00 04/02/18 12:59 Polyethylene Glycol (Miralax) 17 gm DAILYPRN PRN ORAL Constipation 03/03/18 13:00 04/02/18 12:59 Risperidone (RisperDAL) 0.5 mg QHS ORAL 03/05/18 21:00 04/04/18 20:59 Trazodone HCl (Desyrel) 50 mg BEDTIME ORAL 03/05/18 21:00 04/04/18 20:59 Vancomycin HCl (Vanco rx to dose) 1 ea DAILY PRN MISC PER PHARM 03/03/18 13:15 04/02/18 13:14 Vancomycin HCl 1 gm/Dextrose 275 ml @ 183.3 mls/ hr Q12HR@0800,2000 IVPB 03/05/18 20:00 03/10/18 19:59 Leela Weston MD Mar 05, 2018 11:15
[2018-03-05 12:00] VITALS: BP 108/64
--- NOTE | 2018-03-05 13:43 | General Progress Note ---
Assessment/Plan Problem List: (1) Malnutrition ICD Codes: E46 - Unspecified protein-calorie malnutrition SNOMED: 28529996 (2) Pneumonia ICD Codes: J18.9 - Pneumonia, unspecified organism SNOMED: 218004129 (3) GERD (gastroesophageal reflux disease) ICD Codes: K21.9 - Gastro-esophageal reflux disease without esophagitis SNOMED: 024913207 (4) Anemia ICD Codes: D64.9 - Anemia, unspecified SNOMED: 210592471 (5) Sepsis ICD Codes: A41.9 - Sepsis, unspecified organism SNOMED: 10895929 (6) UTI (urinary tract infection) ICD Codes: N39.0 - Urinary tract infection, site not specified SNOMED: 35620875 (7) Dementia ICD Codes: F03.90 - Unspecified dementia without behavioral disturbance SNOMED: 39218792 (8) Depression ICD Codes: F32.9 - Major depressive disorder, single episode, unspecified SNOMED: 80329001 (9) Psychosis ICD Codes: F29 - Unspecified psychosis not due to a substance or known physiological condition SNOMED: 10557227 Status: unchanged Assessment/Plan o2 pulm tx abx ot pt diet cbc bmp am Subjective Constitutional: Reports: weakness Allergies: Coded Allergies: LORAZEPAM (Verified Allergy, Unknown, 03/03/18) All Systems: reviewed and negative except above Subjective calm in bed confused Objective Last 24 Hour Vital Signs Date Time Temp Pulse Resp B/P (MAP) Pulse Ox O2 Delivery O2 Flow Rate FiO2 03/05/18 12:00 97.5 68 18 108/64 (79) 97 03/05/18 09:10 70 16 98 Room Air 21 03/05/18 09:00 Room Air 03/05/18 08:53 68 18 92 Room Air 21 03/05/18 08:00 71 03/05/18 08:00 97.9 65 19 123/67 (85) 95 03/05/18 04:00 98.1 73 22 130/60 (83) 95 03/05/18 04:00 83 03/05/18 01:11 Room Air 03/05/18 01:11 Room Air 03/05/18 00:00 73 03/05/18 00:00 98.2 68 18 138/68 (91) 95 03/04/18 21:00 Room Air 03/04/18 20:00 79 11/4/18 20:00 98.6 71 22 119/55 (76) 94 03/04/18 20:00 70 16 94 Room Air 21 03/04/18 20:00 70 16 94 Room Air 21 03/04/18 16:00 97.7 85 16 106/57 (73) 96 03/04/18 16:00 80 Intake and Output 03/04/18 03/05/18 18:59 06:59 Intake Total 241 ml Output Total 600 ml Balance -359 ml Intake Oral 241 ml Output Urine Total 600 ml # Voids 2 # Bowel Movements 2 Laboratory Tests 03/05/18 04:01: White Blood Count 7.3, Red Blood Count 4.45L, Hemoglobin 13.3L, Hematocrit 39.0L , Mean Corpuscular Volume 88, Mean Corpuscular Hemoglobin 29.9, Mean Corpuscular Hemoglobin Concent 34.0, Red Cell Distribution Width 12.2, Platelet Count 186, Mean Platelet Volume 5.4L, Neutrophils (%) (Auto) 59.2, Lymphocytes ( %) (Auto) 28.4, Monocytes (%) (Auto) 7.3, Eosinophils (%) (Auto) 4.5H, Basophils (%) (Auto) 0.7, Sodium Level 142, Potassium Level 4.2, Chloride Level 109H, Carbon Dioxide Level 29, Anion Gap 4L, Blood Urea Nitrogen 16, Creatinine 0.9, Estimat Glomerular Filtration Rate , Glucose Level 100, Calcium Level 9.4, Vancomycin Level Trough 3.9L Height (Feet): 6 Height (Inches): 2.00 Weight (Pounds): 209 General Appearance: lethargic EENT: normal ENT inspection Neck: normal alignment Cardiovascular: normal peripheral pulses, normal rate, regular rhythm Respiratory/Chest: chest wall non-tender, lungs clear, normal breath sounds Abdomen: normal bowel sounds, non tender, soft Extremities: normal inspection Edema: no edema noted Arm (L), no edema noted Arm (R), no edema noted Leg (L), no edema noted Leg (R), no edema noted Pedal (L), no edema noted Pedal (R), no edema noted Generalized Neurologic: motor weakness Skin: normal pigmentation, warm/dry Jc Leone DO Mar 05, 2018 13:43
--- NOTE | 2018-03-05 14:10 | Diagnostic Imaging Report ---
Indication: Dyspnea Comparison: 03/03/2018 A single view chest radiograph was obtained. Findings: No definite infiltrate or pulmonary vascular congestion identified. The heart is stable. Extensive foreign body over the right side of the chest again noted. The aorta is mildly enlarged consistent with atherosclerotic vascular disease. The bones are osteopenic. Impression: No acute disease
--- NOTE | 2018-03-05 15:15 | Consultation ---
DATE OF CONSULTATION: 03/05/2018 HISTORY OF PRESENT ILLNESS: The patient is a 77-year-old male patient with sepsis, altered mental status, very confused and disorganized. He has got some mood lability. He has got no logical plan for his own self-care. He also has COPD that he is why he does require inpatient treatment at this time. He still has confusion and some disorganized thought process, but the reason why he was brought into [facility] is because he has urinary tract infection, pneumonia, sepsis, confusion, and he has generalized weakness with urinary tract infection. Since he had the urinary tract infection, his confusion and altered mental status worsened and that is why his attending has requested daily psychiatric consultation to help prevent any further decline in the patient's cognition and stabilize his mood. MEDICAL HISTORY: Encephalopathy, GERD, diabetes, sepsis. ALLERGIES: He is allergic to Ativan. SUBSTANCE ABUSE HISTORY: Denies. PAIN ASSESSMENT: 0/10. DEVELOPMENTAL PROBLEMS: Denies. FAMILY PSYCHIATRIC HISTORY: Denies. SOCIAL HISTORY: The patient is currently living in [facility], financially supported by [facility] and Medicare. PSYCHIATRIC HISTORY: He has a history of paranoid schizophrenia with acute exacerbation. He does not mention that he had previous psychiatric admissions. STRENGTHS: He is motivated to get better and has a place to live. WEAKNESSES AND LIABILITIES: He is impulsive and minimal support system. MENTAL STATUS EXAMINATION: This is a 77-year-old male. Appearance is disheveled. Attitude, irritable and agitated. Affect, guarded and restricted. Intellect poor. Mood depressed and anxious. Motor activity, psychomotor agitation. Attention span is poor. Orientation x2. Speech is pressured. Thought process disorganized and . Thought auditory hallucinations, paranoia. Insight is poor because he does not recognize having a psychiatric disorder. Judgment is poor because he does not take consequences serious. Consequences for his actions, short-term memory, 3/3 with word recall after 5 minutes delay with good short-term memory. Long-term memory is poor because he does not recall long-term events in his life such as high school that he went to. DIAGNOSES: 1. Paranoid schizophrenia with acute exacerbation. 2. Medical problems, urinary tract infection, sepsis, diabetes. 3. Psychosocial stressors, financial. 4. Functional impairment, moderate. PLAN: I am going to treat him with a psychotropic medication regimen consisting of Cymbalta 20 mg daily, Aricept 5 mg at bedtime to prevent any further decline in his cognition, trazodone 50 mg at bedtime to help him with insomnia and Risperdal at a dose of 0.5 mg at bedtime for psychosis and stabilize his mood. A 20 minutes of cognitive behavior today went over in identifying his automatic negative thoughts and help him to convert those negative thoughts to more positive thinking to reduce depression and anxiety and also 20 minutes of cognitive behavior therapy sessions . Chart reviewed and discussed with staff. Seen and assessed in his room. I would like to thank Dr. Jc Leone for this interesting consultation. I will be happy to follow this patient with you throughout hospital course. Rogelio Xie M.D. DR: Stefania JOB#: [id number] CC:
[2018-03-05 16:00] VITALS: BP 106/69
[2018-03-05] MEDS ORDERED: NovoLOG Insulin Flexpen SUBQ SCH (16:30)
[2018-03-05] MEDS ORDERED: Nitroglycerin Subl 0.4mg tab SL PRN ×2 (16:30)
[2018-03-05] MEDS ORDERED: Morphine Sulfate 2mg/ml Inj IVP PRN ×2 (17:00)
[2018-03-05] MEDS ORDERED: Miralax 17gm pkt ORAL PRN (17:00)
[2018-03-05] MEDS ORDERED: Albuterol/Ipratropium 3ml neb HHN PRN ×2 (17:00)
[2018-03-05] MEDS ORDERED: ALPRAZolam 0.5mg tab ORAL SCH (18:00)
[2018-03-05] MEDS ORDERED: Ipratropium 0.02% Inh Soln 2.5ml UD HHN SCH (19:00)
[2018-03-05 20:00] VITALS: BP 98/62
[2018-03-05] MEDS ORDERED: Vancomycin 1 GM in D5W 275 ML IVPB SCH ×4 (20:00)
[2018-03-05] MEDS ORDERED: Donepezil 5mg Tab ORAL SCH ×2 (21:00)
[2018-03-05] MEDS ORDERED: Heparin 5000 units/ml inj SUBQ SCH (21:00)
[2018-03-05] MEDS ORDERED: Cefepime HCl 2 GM in D5W 110 ML IV SCH (21:00)
[2018-03-05] MEDS ORDERED: Doxycycline Hyclate 100 MG in D5W 110 ML IV SCH (21:00)
[2018-03-05] MEDS ORDERED: TraZODone 50mg tab ORAL SCH ×2 (21:00)
[2018-03-05] MEDS: Donepezil 5mg Tab ORAL SCH (21:08)
[2018-03-05] MEDS: TraZODone 50mg tab ORAL SCH (21:08)
--- NOTE | 2018-03-05 21:45 | Consultation ---
DATE OF CONSULTATION: 03/05/2018 INFECTIOUS DISEASE CONSULTATION CONSULTING PHYSICIAN: Sudhakar Castillo M.D. REQUESTING PHYSICIAN: Jc Leone D.O. REASON FOR CONSULTATION: Evaluation of the patient for sepsis, pneumonia, and antibiotic management. HISTORY OF PRESENT ILLNESS: The patient is a 77-year-old male with multiple medical problems, as listed below, who was admitted to this medical center for weakness, pneumonia. The patient has been started on IV antibiotics and Infectious Disease consultation has been requested for further evaluation of the patient and antibiotic management. The patient is not able to provide detailed information, as he is confused. PAST MEDICAL HISTORY: Significant for; 1. . 2. GERD. 3. Dementia, Parkinson disease. 4. Hypertension. 5. Asthma. 6. CKD. 7. Diabetes. 8. Anemia. MEDICATIONS: Vancomycin, Flagyl, and cefepime. ALLERGIES: Lorazepam. FAMILY HISTORY: Not contributing. REVIEW OF SYSTEMS: Limited. PHYSICAL EXAM: VITAL SIGNS: Temperature 97.9, pulse 86, respiratory rate 18, and blood pressure 123/67. HEENT: No pale conjunctivae. No icterus. Marked poor oral hygiene. NECK: No lymphadenopathy. CHEST: Clear. HEART: S1 and S2. ABDOMEN: Soft and obese. EXTREMITIES: No cyanosis at this time. NEUROLOGIC: Awake and confused. LABORATORY DATA: Urine culture is growing strep, more than 100,000 colonies. Blood culture pending. LABORATORY AND DIAGNOSTIC DATA: White blood cell hemoglobin 13, platelets 186,000. UA, 30 to 40 white blood cells. BUN 16 and creatinine 0.5. ALT, AST, and alkaline phosphatase unremarkable. Chest x-ray, subsequent atelectasis versus infiltrate in the median lung bases. ASSESSMENT: The patient is a 77-year-old male with, 1. Sepsis. 2. Afebrile. 3. Mild leukocytosis, status post. 4. Probable pneumonia. 5. Probable urinary tract infection. PLAN: 1. We will start the patient on IV vancomycin, cefepime, and Flagyl for now. 2. Monitor CBC. 3. Monitor BMP. 4. Monitor cultures (blood, urine, and sputum). 5. Based on the patient's clinical course and laboratories, we will do further recommendation. I will taper antibiotics. Sudhakar Castillo M.D. DR: TARYN JOB#: [id number] CC:
[2018-03-06] VITALS: BP 95/51
[2018-03-06] MEDS: Ipratropium 0.02% Inh Soln 2.5ml UD HHN SCH ×4 (01:00→19:00)
[2018-03-06 04:00] VITALS: BP 111/51
[2018-03-06] MEDS: NovoLOG Insulin Flexpen SUBQ SCH ×4 (06:19→20:16)
[2018-03-06 08:00] VITALS: BP 101/63
[2018-03-06] MEDS: Vancomycin 1 GM in D5W 275 ML IVPB SCH (08:00)
[2018-03-06 08:18] LABS: BASOPHILS % (AUTO) 0.8 % (0.0-2.0); EOSINOPHILS % (AUTO) 4.2 % (0.0-3.0); HEMATOCRIT 38.9 % (42.0-52.0); LYMPHOCYTES % (AUTO) 29.3 % (20.0-45.0); MEAN CORPUSCULAR VOLUME 88 FL (80-99); MONOCYTES % (AUTO) 6.4 % (1.0-10.0); NEUTROPHILS % (AUTO) 59.3 % (45.0-75.0); PLATELET COUNT 204 K/UL (150-450); RED BLOOD COUNT 4.42 M/UL (4.70-6.10); RED CELL DISTRIBUTION WIDTH 12.3 % (11.6-14.8)
[2018-03-06] MEDS: ALPRAZolam 0.5mg tab ORAL SCH ×3 (08:20→18:19)
[2018-03-06] MEDS: Cefepime HCl 2 GM in D5W 110 ML IV SCH (08:21)
[2018-03-06] MEDS: Heparin 5000 units/ml inj SUBQ SCH ×3 (08:24→20:16)
--- NOTE | 2018-03-06 08:29 | Cardiology Report ---
APPROVED REPORT EKG Measurement Heart [id number] Sinus rhythm with 1st degree AV block with premature supraventricular complexes Low voltage QRS Borderline ECG
[2018-03-06 08:35] LABS: ALANINE AMINOTRANSFERASE 14 U/L (12-78); ALBUMIN 2.7 G/DL (3.4-5.0); ALBUMIN/GLOBULIN RATIO 0.6 (1.0-2.7); ALKALINE PHOSPHATASE 66 U/L (46-116); ANION GAP 4 mmol/L (5-15); ASPARTATE AMINO TRANSFERASE 13 U/L (15-37); BILIRUBIN,TOTAL 0.5 MG/DL (0.2-1.0); BLOOD UREA NITROGEN 12 mg/dL (7-18); CALCIUM 9.1 MG/DL (8.5-10.1); CARBON DIOXIDE 30 MMOL/L (21-32); CHLORIDE 109 MMOL/L (98-107); CREATININE 0.8 MG/DL (0.55-1.30); PHOSPHORUS 3.1 MG/DL (2.5-4.9); POTASSIUM 3.5 MMOL/L (3.5-5.1); SODIUM 143 MMOL/L (136-145)
[2018-03-06] MEDS: Doxycycline Hyclate 100 MG in D5W 110 ML IV SCH (09:49)
--- NOTE | 2018-03-06 10:16 | Infectious Diseases Prog Note ---
Assessment/Plan Assessment/Plan ASSESSMENT: The patient is a 77-year-old male with, Sepsis Afebrile. Mild leukocytosis, sp Probable pneumonia. CXR: NAPD Probable UTI Ucx : E fecalis GERD. Dementia, Parkinson disease. Hypertension. Asthma. CKD. Diabetes. Anemia. PLAN: cont pt on oral Amoxi d# 1/ 10 and DC IV vancomycin, cefepime, and Flagyl d# 2 Monitor CBC. Monitor BMP. Monitor cultures (blood, and sputum). Subjective Allergies: Coded Allergies: LORAZEPAM (Verified Allergy, Unknown, 03/03/18) Objective Vital Signs Last 24 Hour Vital Signs Date Time Temp Pulse Resp B/P (MAP) Pulse Ox O2 Delivery O2 Flow Rate FiO2 03/06/18 09:00 Room Air 03/06/18 08:00 97.3 75 18 101/63 (76) 97 03/06/18 04:00 98.2 73 20 111/51 (71) 97 03/06/18 03:00 Room Air 21 03/06/18 03:00 Room Air 21 03/06/18 00:00 98.3 69 20 95/51 (66) 94 03/05/18 21:08 70 18 98 Room Air 21 03/05/18 21:00 Room Air 03/05/18 20:56 76 18 97 Room Air 21 03/05/18 20:00 98.4 79 18 98/62 (74) 91 03/05/18 16:25 70 16 100 Room Air 21 03/05/18 16:17 71 18 96 Room Air 21 03/05/18 16:00 97.3 70 18 106/69 (81) 97 03/05/18 12:00 67 03/05/18 12:00 97.5 68 18 108/64 (79) 97 Height (Feet): 6 Height (Inches): 2.00 Weight (Pounds): 209 HEENT: anicteric Respiratory/Chest: no respiratory distress Cardiovascular: regular rhythm Abdomen: no organomegaly Microbiology Date/Time Source Procedure Growth Status 03/03/18 11:55 Nasal Nares MRSA Culture - Final Staphylococcus Aureus - Mrsa Complete Laboratory Tests Test 03/06/18 07:40 White Blood Count 6.0 K/UL (4.8-10.8) Red Blood Count 4.42 M/UL (4.70-6.10) L Hemoglobin 13.0 G/DL (14.2-18.0) L Hematocrit 38.9 % (42.0-52.0) L Mean Corpuscular Volume 88 FL (80-99) Mean Corpuscular Hemoglobin 29.4 PG (27.0-31.0) Mean Corpuscular Hemoglobin Concent 33.4 G/DL (32.0-36.0) Red Cell Distribution Width 12.3 % (11.6-14.8) Platelet Count 204 K/UL (150-450) Mean Platelet Volume 5.0 FL (6.5-10.1) L Neutrophils (%) (Auto) 59.3 % (45.0-75.0) Lymphocytes (%) (Auto) 29.3 % (20.0-45.0) Monocytes (%) (Auto) 6.4 % (1.0-10.0) Eosinophils (%) (Auto) 4.2 % (0.0-3.0) H Basophils (%) (Auto) 0.8 % (0.0-2.0) Erythrocyte Sedimentation Rate 63 MM/HR (0-20) H Sodium Level 143 MMOL/L (136-145) Potassium Level 3.5 MMOL/L (3.5-5.1) Chloride Level 109 MMOL/L (98-107) H Carbon Dioxide Level 30 MMOL/L (21-32) Anion Gap 4 mmol/L (5-15) L Blood Urea Nitrogen 12 mg/dL (7-18) Creatinine 0.8 MG/DL (0.55-1.30) Estimat Glomerular Filtration Rate mL/min (>60) Glucose Level 96 MG/DL (74-106) Calcium Level 9.1 MG/DL (8.5-10.1) Phosphorus Level 3.1 MG/DL (2.5-4.9) Magnesium Level 2.1 MG/DL (1.8-2.4) Total Bilirubin 0.5 MG/DL (0.2-1.0) Aspartate Amino Transf (AST/SGOT) 13 U/L (15-37) L Alanine Aminotransferase (ALT/SGPT) 14 U/L (12-78) Alkaline Phosphatase 66 U/L (46-116) C-Reactive Protein, Quantitative 2.8 mg/dL (0.00-0.90) H Total Protein 7.4 G/DL (6.4-8.2) Albumin 2.7 G/DL (3.4-5.0) L Globulin 4.7 g/dL Albumin/Globulin Ratio 0.6 (1.0-2.7) L Vancomycin Level Trough 9.1 ug/mL (5.0-12.0) Current Medications Medications (Trade) Dose Ordered Sig/Jori Route PRN Reason Start Time Stop Time Status Last Admin Dose Admin Acetaminophen (Tylenol) 650 mg Q4H PRN ORAL T>100.5 03/05/18 17:00 04/02/18 12:59 Albuterol/ Ipratropium (Albuterol/ Ipratropium) 3 ml Q4H PRN HHN Shortness of Breath 03/05/18 17:00 03/08/18 12:59 Alprazolam (Xanax) 0.5 mg BID ORAL 03/05/18 18:00 03/10/18 21:23 03/05/18 17:49 Cefepime HCl 2 gm/ Dextrose 110 ml @ 220 mls/hr EVERY 12 HOURS IV 03/05/18 21:00 03/10/18 20:59 03/06/18 08:21 Dextrose (Dextrose 50%) 25 ml Q30M PRN IV Hypoglycemia 03/05/18 16:30 04/02/18 17:29 Dextrose (Dextrose 50%) 50 ml Q30M PRN IV Hypoglycemia 03/05/18 16:30 04/02/18 17:29 Donepezil HCl (Aricept) 5 mg QHS ORAL 03/05/18 21:00 04/04/18 20:59 03/05/18 21:08 Doxycycline Hyclate 100 mg/ Dextrose 110 ml @ 110 mls/hr Q12HR IV 03/05/18 21:00 03/10/18 20:59 03/06/18 09:49 Duloxetine HCl (Cymbalta) 20 mg DAILY ORAL 03/06/18 09:00 04/04/18 08:59 Heparin Sodium (Porcine) (Heparin 5000 units/ml) 5,000 units EVERY 12 HOURS SUBQ 03/05/18 21:00 04/02/18 20:59 03/05/18 21:09 Insulin Aspart (NovoLOG) BEFORE MEALS AND HS SUBQ 03/05/18 17:30 04/02/18 17:29 03/05/18 21:10 Ipratropium [place] (Atrovent) 500 mcg Q6HRT HHN 03/05/18 19:00 03/08/18 18:59 03/05/18 20:56 Metronidazole 100 ml @ 100 mls/hr Q8HR IVPB 03/05/18 22:00 03/10/18 21:59 03/06/18 05:12 Morphine Sulfate (Morphine Sulfate) 2 mg Q4H PRN IVP Moderate Pain (Pain Scale 4-6) 03/05/18 17:00 03/10/18 12:59 Nitroglycerin (Ntg) 0.4 mg Q5M PRN SL Prn Chest Pain 03/05/18 16:30 04/02/18 12:59 Ondansetron HCl (Zofran) 4 mg Q6H PRN IVP Nausea & Vomiting 03/05/18 17:00 04/04/18 16:59 Polyethylene Glycol (Miralax) 17 gm DAILYPRN PRN ORAL Constipation 03/05/18 17:00 04/04/18 16:59 Risperidone (RisperDAL) 0.5 mg QHS ORAL 03/05/18 21:00 04/04/18 20:59 03/05/18 21:08 Trazodone HCl (Desyrel) 50 mg BEDTIME ORAL 03/05/18 21:00 04/04/18 20:59 03/05/18 21:08 Vancomycin HCl (Vanco rx to dose) 1 ea DAILY PRN MISC PER PHARM 03/05/18 17:00 04/04/18 16:59 Vancomycin HCl 1 gm/Dextrose 275 ml @ 183.3 mls/ hr Q12HR@0800,2000 IVPB 03/05/18 20:00 03/10/18 19:59 03/05/18 19:39 Sudhakar Castillo MD Mar 06, 2018 10:16
--- NOTE | 2018-03-06 10:24 | Pulmonology Progress Note ---
Assessment/Plan Problems: (1) Sepsis (2) UTI (urinary tract infection) (3) Dementia (4) Depression (5) Psychosis Assessment/Plan improving wbc lower cxr reviewed: no new infiltrate, check cultures iv abx check electrolytes psych f/u dvt prophylaxis aspiration precaution Subjective ROS Limited/Unobtainable: No Interval Events: doing better, no new complains Allergies: Coded Allergies: LORAZEPAM (Verified Allergy, Unknown, 03/03/18) Objective Last 24 Hour Vital Signs Date Time Temp Pulse Resp B/P (MAP) Pulse Ox O2 Delivery O2 Flow Rate FiO2 03/06/18 09:00 Room Air 03/06/18 08:00 97.3 75 18 101/63 (76) 97 03/06/18 04:00 98.2 73 20 111/51 (71) 97 03/06/18 03:00 Room Air 21 03/06/18 03:00 Room Air 21 03/06/18 00:00 98.3 69 20 95/51 (66) 94 03/05/18 21:08 70 18 98 Room Air 21 03/05/18 21:00 Room Air 03/05/18 20:56 76 18 97 Room Air 21 03/05/18 20:00 98.4 79 18 98/62 (74) 91 03/05/18 16:25 70 16 100 Room Air 21 03/05/18 16:17 71 18 96 Room Air 21 03/05/18 16:00 97.3 70 18 106/69 (81) 97 03/05/18 12:00 67 03/05/18 12:00 97.5 68 18 108/64 (79) 97 Intake and Output 03/05/18 03/06/18 19:00 07:00 Intake Total 240 ml 695.0 ml Output Total 500 ml Balance -260 ml 695.0 ml Intake Oral 240 ml IV Total 695.0 ml Output Urine Total 500 ml # Voids 4 General Appearance: WD/WN HEENT: normocephalic, atraumatic, anicteric Respiratory/Chest: chest wall non-tender, lungs clear Cardiovascular: normal peripheral pulses, normal rate Abdomen: normal bowel sounds, soft, non tender Genitourinary: normal external genitalia Extremities: no clubbing Skin: no rash Lymphatic: no neck adenopathy Microbiology Date/Time Source Procedure Growth Status 03/03/18 11:55 Nasal Nares MRSA Culture - Final Staphylococcus Aureus - Mrsa Complete Laboratory Tests 03/06/18 07:40: White Blood Count 6.0, Red Blood Count 4.42L, Hemoglobin 13.0L, Hematocrit 38.9L , Mean Corpuscular Volume 88, Mean Corpuscular Hemoglobin 29.4, Mean Corpuscular Hemoglobin Concent 33.4, Red Cell Distribution Width 12.3, Platelet Count 204, Mean Platelet Volume 5.0L, Neutrophils (%) (Auto) 59.3, Lymphocytes ( %) (Auto) 29.3, Monocytes (%) (Auto) 6.4, Eosinophils (%) (Auto) 4.2H, Basophils (%) (Auto) 0.8, Erythrocyte Sedimentation Rate 63H, Sodium Level 143, Potassium Level 3.5, Chloride Level 109H, Carbon Dioxide Level 30, Anion Gap 4L , Blood Urea Nitrogen 12, Creatinine 0.8, Estimat Glomerular Filtration Rate , Glucose Level 96, Calcium Level 9.1, Phosphorus Level 3.1, Magnesium Level 2.1, Total Bilirubin 0.5, Aspartate Amino Transf (AST/SGOT) 13L, Alanine Aminotransferase (ALT/SGPT) 14, Alkaline Phosphatase 66, C-Reactive Protein, Quantitative 2.8H, Total Protein 7.4, Albumin 2.7L, Globulin 4.7, Albumin/ Globulin Ratio 0.6L, Vancomycin Level Trough 9.1 Current Medications Medications (Trade) Dose Ordered Sig/Jori Route PRN Reason Start Time Stop Time Status Last Admin Dose Admin Acetaminophen (Tylenol) 650 mg Q4H PRN ORAL T>100.5 03/05/18 17:00 04/02/18 12:59 Albuterol/ Ipratropium (Albuterol/ Ipratropium) 3 ml Q4H PRN HHN Shortness of Breath 03/05/18 17:00 03/08/18 12:59 Alprazolam (Xanax) 0.5 mg BID ORAL 03/05/18 18:00 03/10/18 21:23 03/05/18 17:49 Cefepime HCl 2 gm/ Dextrose 110 ml @ 220 mls/hr EVERY 12 HOURS IV 03/05/18 21:00 03/10/18 20:59 03/06/18 08:21 Dextrose (Dextrose 50%) 25 ml Q30M PRN IV Hypoglycemia 03/05/18 16:30 04/02/18 17:29 Dextrose (Dextrose 50%) 50 ml Q30M PRN IV Hypoglycemia 03/05/18 16:30 04/02/18 17:29 Donepezil HCl (Aricept) 5 mg QHS ORAL 03/05/18 21:00 04/04/18 20:59 03/05/18 21:08 Doxycycline Hyclate 100 mg/ Dextrose 110 ml @ 110 mls/hr Q12HR IV 03/05/18 21:00 03/10/18 20:59 03/06/18 09:49 Duloxetine HCl (Cymbalta) 20 mg DAILY ORAL 03/06/18 09:00 04/04/18 08:59 Heparin Sodium (Porcine) (Heparin 5000 units/ml) 5,000 units EVERY 12 HOURS SUBQ 03/05/18 21:00 04/02/18 20:59 03/05/18 21:09 Insulin Aspart (NovoLOG) BEFORE MEALS AND HS SUBQ 03/05/18 17:30 04/02/18 17:29 03/05/18 21:10 Ipratropium Hiko (Atrovent) 500 mcg Q6HRT HHN 03/05/18 19:00 03/08/18 18:59 03/05/18 20:56 Metronidazole 100 ml @ 100 mls/hr Q8HR IVPB 03/05/18 22:00 03/10/18 21:59 03/06/18 05:12 Morphine Sulfate (Morphine Sulfate) 2 mg Q4H PRN IVP Moderate Pain (Pain Scale 4-6) 03/05/18 17:00 03/10/18 12:59 Nitroglycerin (Ntg) 0.4 mg Q5M PRN SL Prn Chest Pain 03/05/18 16:30 04/02/18 12:59 Ondansetron HCl (Zofran) 4 mg Q6H PRN IVP Nausea & Vomiting 03/05/18 17:00 04/04/18 16:59 Polyethylene Glycol (Miralax) 17 gm DAILYPRN PRN ORAL Constipation 03/05/18 17:00 04/04/18 16:59 Risperidone (RisperDAL) 0.5 mg QHS ORAL 03/05/18 21:00 04/04/18 20:59 03/05/18 21:08 Trazodone HCl (Desyrel) 50 mg BEDTIME ORAL 03/05/18 21:00 04/04/18 20:59 03/05/18 21:08 Vancomycin HCl (Vanco rx to dose) 1 ea DAILY PRN MISC PER PHARM 03/05/18 17:00 04/04/18 16:59 Vancomycin HCl/ Dextrose 250 ml @ 166.667 mls/hr Q12HR@1100,2300 IVPB 03/06/18 11:30 03/11/18 11:29 Leela Weston MD Mar 06, 2018 10:24
[2018-03-06] MEDS ORDERED: Vancomycin 1250mg/D5W 250ml IVPB SCH (11:30)
[2018-03-06 12:00] VITALS: BP 110/57
--- NOTE | 2018-03-06 12:40 | General Progress Note ---
Assessment/Plan Problem List: (1) Malnutrition ICD Codes: E46 - Unspecified protein-calorie malnutrition SNOMED: 88803351 (2) Pneumonia ICD Codes: J18.9 - Pneumonia, unspecified organism SNOMED: 322713254 (3) GERD (gastroesophageal reflux disease) ICD Codes: K21.9 - Gastro-esophageal reflux disease without esophagitis SNOMED: 207263322 (4) Anemia ICD Codes: D64.9 - Anemia, unspecified SNOMED: 903905335 (5) Sepsis ICD Codes: A41.9 - Sepsis, unspecified organism SNOMED: 35542263 (6) UTI (urinary tract infection) ICD Codes: N39.0 - Urinary tract infection, site not specified SNOMED: 51873881 (7) Dementia ICD Codes: F03.90 - Unspecified dementia without behavioral disturbance SNOMED: 14932728 (8) Depression ICD Codes: F32.9 - Major depressive disorder, single episode, unspecified SNOMED: 82827655 (9) Psychosis ICD Codes: F29 - Unspecified psychosis not due to a substance or known physiological condition SNOMED: 81325086 Status: stable, progressing Assessment/Plan o2 pulm tx abx ot pt diet cbc bmp am dc plan Subjective Constitutional: Reports: weakness Allergies: Coded Allergies: LORAZEPAM (Verified Allergy, Unknown, 03/03/18) All Systems: reviewed and negative except above Subjective calm in bed confused Objective Last 24 Hour Vital Signs Date Time Temp Pulse Resp B/P (MAP) Pulse Ox O2 Delivery O2 Flow Rate FiO2 03/06/18 09:00 Room Air 03/06/18 08:00 97.3 75 18 101/63 (76) 97 03/06/18 04:00 98.2 73 20 111/51 (71) 97 03/06/18 03:00 Room Air 21 03/06/18 03:00 Room Air 21 03/06/18 00:00 98.3 69 20 95/51 (66) 94 03/05/18 21:08 70 18 98 Room Air 21 03/05/18 21:00 Room Air 03/05/18 20:56 76 18 97 Room Air 21 03/05/18 20:00 98.4 79 18 98/62 (74) 91 03/05/18 16:25 70 16 100 Room Air 21 03/05/18 16:17 71 18 96 Room Air 21 03/05/18 16:00 97.3 70 18 106/69 (81) 97 Intake and Output 03/05/18 03/06/18 19:00 07:00 Intake Total 240 ml 695.0 ml Output Total 500 ml Balance -260 ml 695.0 ml Intake Oral 240 ml IV Total 695.0 ml Output Urine Total 500 ml # Voids 4 Laboratory Tests 03/06/18 07:40: White Blood Count 6.0, Red Blood Count 4.42L, Hemoglobin 13.0L, Hematocrit 38.9L , Mean Corpuscular Volume 88, Mean Corpuscular Hemoglobin 29.4, Mean Corpuscular Hemoglobin Concent 33.4, Red Cell Distribution Width 12.3, Platelet Count 204, Mean Platelet Volume 5.0L, Neutrophils (%) (Auto) 59.3, Lymphocytes ( %) (Auto) 29.3, Monocytes (%) (Auto) 6.4, Eosinophils (%) (Auto) 4.2H, Basophils (%) (Auto) 0.8, Erythrocyte Sedimentation Rate 63H, Sodium Level 143, Potassium Level 3.5, Chloride Level 109H, Carbon Dioxide Level 30, Anion Gap 4L , Blood Urea Nitrogen 12, Creatinine 0.8, Estimat Glomerular Filtration Rate , Glucose Level 96, Calcium Level 9.1, Phosphorus Level 3.1, Magnesium Level 2.1, Total Bilirubin 0.5, Aspartate Amino Transf (AST/SGOT) 13L, Alanine Aminotransferase (ALT/SGPT) 14, Alkaline Phosphatase 66, C-Reactive Protein, Quantitative 2.8H, Total Protein 7.4, Albumin 2.7L, Globulin 4.7, Albumin/ Globulin Ratio 0.6L, Vancomycin Level Trough 9.1 Height (Feet): 6 Height (Inches): 2.00 Weight (Pounds): 209 General Appearance: lethargic EENT: normal ENT inspection Neck: normal alignment Cardiovascular: normal peripheral pulses, normal rate, regular rhythm Respiratory/Chest: chest wall non-tender, lungs clear, normal breath sounds Abdomen: normal bowel sounds, non tender, soft Extremities: normal inspection Edema: no edema noted Arm (L), no edema noted Arm (R), no edema noted Leg (L), no edema noted Leg (R), no edema noted Pedal (L), no edema noted Pedal (R), no edema noted Generalized Neurologic: motor weakness Skin: normal pigmentation, warm/dry Jc Leone DO Mar 06, 2018 12:40
[2018-03-06] MEDS ORDERED: Miralax 17gm pkt ORAL PRN (13:00)
[2018-03-06 16:00] VITALS: BP 102/59
[2018-03-06] MEDS ORDERED: Tubing IV Secondary IV ONE (16:11)
[2018-03-06] MEDS ORDERED: NS 500ML ONE (16:11)
[2018-03-06 20:00] VITALS: BP 110/60
[2018-03-06] MEDS: TraZODone 50mg tab ORAL SCH (20:15)
[2018-03-06] MEDS: Donepezil 5mg Tab ORAL SCH (20:15)
--- NOTE | 2018-03-07 | Consultation ---
DATE OF CONSULTATION: 03/06/2018 NOTE: INCOMPLETE DICTATION INFECTIOUS DISEASE CONSULTATION CONSULTING PHYSICIAN: Sudhakar Castillo M.D. REFERRING PHYSICIAN: Jc Leone D.O. Sudhakar Castillo M.D. DR: CASSIE JOB#: [id number] CC:
[2018-03-07 00:05] VITALS: BP 125/96
[2018-03-07] MEDS: Ipratropium 0.02% Inh Soln 2.5ml UD HHN SCH ×2 (01:00→07:00)
--- NOTE | 2018-03-07 01:00 | Progress Note ---
DATE: 03/06/2018 SUBJECTIVE: The patient is a 77-year-old male patient with sepsis. He also has altered mental status and psychomotor agitation secondary to sepsis and mood lability. That is why his attending has requested daily psychiatric consultation. lot of psychomotor agitation. Ativan 1 mg as needed to calm down the agitation and irritability. MENTAL STATUS EXAMINATION: This is a 77-year-old male. Appearance is disheveled. Attitude, irritable and agitated. Affect, guarded and restricted. Intellect poor. Mood, depressed and anxious. Motor activity, psychomotor agitation. Attention span is poor. Orientation x2. Speech is pressured. Thought process disorganized. Thought content, auditory hallucinations and paranoid delusions. Insight and judgment is poor. DIAGNOSIS: Paranoid schizophrenia, acute exacerbation, rule out dementia with psychosis. PLAN: The patient is treated with Cymbalta 20 mg a day. I am going to titrate up on his Risperdal to 1 mg b.i.d., trazodone 50 mg at bedtime, and Aricept 5 mg at bedtime. Provided him with 20 minutes of cognitive behavior therapy and help this patient identify his automatic negative thoughts and help him to convert those negative thoughts to more positive thinking to reduce depression and anxiety. Chart reviewed and discussed with staff. Seen and assessed in his room. Rogelio Xie M.D. DR: RAUL JOB#: [id number] CC:
[2018-03-07] MEDS ORDERED: AMOXICILLI400 MG/5 M ORAL (02:07)
[2018-03-07] MEDS ORDERED: NOVOLOG100 UNITS1 (02:11)
[2018-03-07] MEDS ORDERED: ACETAMINOPHEN325 M1 ORAL (02:11)
[2018-03-07] MEDS: NovoLOG Insulin Flexpen SUBQ SCH (05:46)
[2018-03-07 06:07] VITALS: BP 114/68
[2018-03-07 06:30] LABS: BASOPHILS % (AUTO) 0.5 % (0.0-2.0); EOSINOPHILS % (AUTO) 2.8 % (0.0-3.0); HEMATOCRIT 35.4 % (42.0-52.0); HEMOGLOBIN 12.2 G/DL (14.2-18.0); LYMPHOCYTES % (AUTO) 31.2 % (20.0-45.0); MEAN CORPUSCULAR VOLUME 87 FL (80-99); MONOCYTES % (AUTO) 7.5 % (1.0-10.0); PLATELET COUNT 202 K/UL (150-450); RED BLOOD COUNT 4.05 M/UL (4.70-6.10)
[2018-03-07] MEDS ORDERED: Tubing IV Secondary IV ONE (06:51)
[2018-03-07 07:12] LABS: ALANINE AMINOTRANSFERASE 25 U/L (12-78); ALBUMIN 2.8 G/DL (3.4-5.0); ALBUMIN/GLOBULIN RATIO 0.6 (1.0-2.7); ALKALINE PHOSPHATASE 63 U/L (46-116); ANION GAP 6 mmol/L (5-15); ASPARTATE AMINO TRANSFERASE 21 U/L (15-37); BILIRUBIN,TOTAL 0.4 MG/DL (0.2-1.0); BLOOD UREA NITROGEN 18 mg/dL (7-18); CALCIUM 9.2 MG/DL (8.5-10.1); CARBON DIOXIDE 28 MMOL/L (21-32); CHLORIDE 108 MMOL/L (98-107); CREATININE 0.8 MG/DL (0.55-1.30); POTASSIUM 3.4 MMOL/L (3.5-5.1); SODIUM 142 MMOL/L (136-145)
--- NOTE | 2018-03-07 18:30 | Progress Note ---
DATE: 03/07/2018 SUBJECTIVE: This is a 77-year-old male patient with sepsis, altered mental status, confusion, higher level of depression, anxiety, mood lability worsened by stress of medical illness that is why the attending has requested daily psychiatric consultation. MENTAL STATUS EXAMINATION: The patient is a 77-year-old male. Appearance is disheveled. Attitude, irritable and agitated. Affect, guarded and restricted. Intellect poor. Mood depressed and anxious. Motor activity, psychomotor agitation. Attention span is poor. Orientation x2. Speech is pressured. Thought process disorganized and illogical. Thought process, auditory hallucinations and paranoid delusions. Insight and judgement is poor. DIAGNOSIS: Paranoid schizophrenia with acute exacerbation. PLAN: Treat with Cymbalta 20 mg a day, Risperdal 0.25 mg at bedtime, trazodone 50 mg at bedtime, and Aricept 5 mg at bedtime. Provided him with 20 minutes of cognitive behavior therapy to help this patient identify his automatic negative thoughts and help him to convert those negative thoughts to more positive thinking to reduce depression, anxiety, mood lability, also psychiatric clearance the patient for discharge. Rogelio Xie M.D. DR: Stefania JOB#: [id number] CC:
--- NOTE | 2018-03-08 14:23 | Discharge Summary ---
Discharge Summary Discharge Summary _ DATE OF ADMISSION: 03/03/2018 DATE OF DISCHARGE: 03/07/2018 CONSULTANTS: Dr. Leela Xie BRIEF HOSPITAL COURSE: Patient is a 77-year-old male, from [facility], presented to [facility] due to increased confusion and weakness. Patient had reported elevated white blood cell count at the halfway. He was noted to have decreased responsiveness. He has medical history significant for asthma, diabetes type 2, GERD, CK D, schizophrenia, dementia, anxiety and depression. On arrival to ED, patient was confused and sluggish. Patient was hypotensive, blood pressure was 89/53, pulse rate 76, 94% oxygen saturation on 2 L nasal cannula. Blood work showed mildly elevated WBC to 12.4. Hemoglobin was 12.2, hematocrit 36.8, platelet of 140. Urinalysis with 30-40 WBC, 2-4 RBC, 3+ leukocyte esterase, 2+ blood. EKG was in normal sinus rhythm. He had a chest x -ray that showed increased interstitial markings, subsegmental atelectasis versus infiltrate in the medial lung base. He was then admitted for evaluation of sepsis and UTI. He was seen by infectious disease specialist. He was started on IV vancomycin, cefepime and Flagyl. He was continued on O2 support. He was placed on heparin subcutaneous for DVT prophylaxis. He was placed on aspiration precautions. He was seen by a psychiatrist. Patient has confusion and disorganized thought process. He was diagnosed with paranoid schizophrenia. He was given psychotropic medications consisting of Cymbalta 20 mg daily, Aricept 5 mg daily at bedtime, trazodone 50 mg daily at bedtime and Risperdal 0.5 mg. Urine culture showed growth of enterococcus faecalis. Antibiotics were discontinued. He was given amoxicillin. Leukocytosis resolved. He was cleared for discharge back to halfway. FINAL DIAGNOSES: Sepsis Probable pneumonia Probable UTI GERD Dementia Parkinson's disease Hypertension Asthma Chronic kidney disease Diabetes Anemia Paranoid schizophrenia with acute exacerbation Depression Severe protein calorie malnutrition DISPOSITION: Patient was discharged to [facility]. DISCHARGE MEDICATIONS: Refer to Discharge Medication List. I have been assigned to dictate discharge summary on this account, and I was not involved in the patient's management. Camila Cramer NP Mar 08, 2018 14:23
== END 2018-03-07 06:52 | DRG 871 ==
LOC: EDBD 08:58 → EMR 09:53 → EDBEDREQ 10:55 → 2E 11:04 → 4E 03-05 16:00
DX: A41.9 Sepsis, unspecified organism (principal); J18.9 Pneumonia, unspecified organism; E43 Unspecified severe protein-calorie malnutrition; N39.0 Urinary tract infection, site not specified; G93.40 Encephalopathy, unspecified; E46 Unspecified protein-calorie malnutrition; F20.0 Paranoid schizophrenia; I12.9 Hypertensive chronic kidney disease with stage 1 through stage 4 chronic kidney disease, or unspecified chronic kidney disease; K21.9 Gastro-esophageal reflux disease without esophagitis; D64.9 Anemia, unspecified; J45.909 Unspecified asthma, uncomplicated; E11.22 Type 2 diabetes mellitus with diabetic chronic kidney disease; G30.9 Alzheimer's disease, unspecified; F02.80 Dementia in other diseases classified elsewhere, unspecified severity, without behavioral disturbance, psychotic disturbance, mood disturbance, and anxiety; N18.9 Chronic kidney disease, unspecified; F32.9 Major depressive disorder, single episode, unspecified; Z88.8 Allergy status to other drugs, medicaments and biological substances; B95.2 Enterococcus as the cause of diseases classified elsewhere; Z66 Do not resuscitate
CPT/HCPCS: 36415; 71045; 80048; 80053; 80202; 81003; 82550; 82553; 82962; 83605; 83735; 84100; 84484; 85025; 85651; 86140; 87040; 87081; 87086; 87181; 93005; 94640; 94664; 96365; 99285; J1815; J3490; J7620